=== PATIENT | male | born 1965 | race Caucasian/White ===

== ENCOUNTER 2022-01-20 08:57 | Emergency (ER) | payer MEDICARE, MEDICAID ==
[2022-01-20] MEDS ORDERED: Morphine 4 MG/ML VIAL ONE (10:18)
[2022-01-20] MEDS ORDERED: Dexamethasone 10 MG/ML VIAL ONE (10:18)
[2022-01-20] MEDS ORDERED: Ketorolac Tromethamine 30 MG/ML VIAL ONE (10:19)
[2022-01-20] MEDS ORDERED: Diazepam 5 MG TAB ONE (10:19)
== END 2022-01-20 10:10 | disposition home or self-care (01) ==
LOC: CSHERS 08:57
DX: M54.42 Lumbago with sciatica, left side (principal); F17.200 Nicotine dependence, unspecified, uncomplicated
CPT/HCPCS: 72100; 96372; J1100; J1885; J2270